=== PATIENT | female | born 1970 | race American Indian/Alaskan Native ===

== ENCOUNTER 2019-04-27 06:49 | Day surgery (SDC) | payer BC ==
--- NOTE | 2019-04-27 07:44 | Anesthesia Day of Surgery ---
Anesthesia Day of Surgery - Day of Surgery Patient Examined: Yes Patient H&P Reviewed: Yes Patient is NPO: Yes
--- NOTE | 2019-04-27 07:46 | Anesthesia Consultation ---
Anesthesia Consult and Med Hx Date of service: 04/27/19 - Airway Anesthetic Teeth Evaluation: Good ROM Head & Neck: Adequate Mental/Hyoid Distance: Adequate Mallampati Class: Class II Intubation Access Assessment: Probably Good - Pre-Operative Health Status ASA Pre-Surgery Classification: ASA2 Proposed Anesthetic Plan: MAC - Pulmonary Hx Smoking: No Hx Asthma: No - Gastrointestinal Hx Gastroesophageal Reflux Disease: Yes
[2019-04-27] MEDS ORDERED: WATER FOR IRRIG STERILE IR ONE ×2 (07:48→07:50)
[2019-04-27] MEDS ORDERED: WATER FOR IRRIG STERILE ONE (07:49)
[2019-04-27] MEDS ORDERED: DIPRIVAN 10 MG/ML IV ONE ×3 (07:51)
[2019-04-27] MEDS ORDERED: XYLOCAINE 1% 20 mL ONE (07:51)
[2019-04-27] MEDS ORDERED: VERSED ONE (07:51)
[2019-04-27] MEDS ORDERED: NACL 0.9% 1000 ML 1,000 ML IV SCH (08:00)
--- NOTE | 2019-04-27 09:18 | Procedure Note ---
Date of procedure: 04/27/19 Pre-op diagnosis: GERD and Abdominal Pain Post-op diagnosis: other (Mild to Moderate Distale Esophagitis/Gastritis/ R/O Celiac Disease/Small Cecal and Sigmoid Polyps/ Solitary, Cecal Diverticuli/ R/O Ileitis/ R/O Microscopic Colitis/ Mild to Moderate Internal Hemorrhoids) Procedure: EGD with Biopsy and Colonoscopy with Biopsy Anesthesia: [facility] Surgeon: JELANI SARMIENTO Estimated blood loss: minimal Pathology: list Specimen disposition: to lab Condition: stable Disposition: same day (Treat with PPI,prn Bentyl and OTC Probiotic. Avoid aspirin and NSAID for 5 days and follow up in 1 to 2 weeks ([phone]).)
[2019-04-27 09:52] VITALS: BP 116/71
--- NOTE | 2019-04-27 10:07 | Operative Report ---
INDICATIONS: This is a 48-year-old -Citizen Of The [place] female with a strong family history of cancer. The patient's mother had breast cancer at a relatively young age. Father had prostate cancer. Colonoscopy was done because the patient was also complaining of some abdominal pain and rule out for any associated colitis. DESCRIPTION OF PROCEDURE: The procedure was done after getting informed consent with MAC anesthesia. Initial rectal exam was unremarkable. Instrument was passed through the rectum onto the cecum, which was identified by the ileocecal valve and the appendiceal orifice. Visualization was fair to good. The terminal ileum was intubated showed normal mucosa. Biopsy was done to rule out for possible ileitis. There were multiple small polyps noted in the cecum, which may have been hyperplastic. These were removed. Several of these were removed via cold biopsy. There was a solitary cecal diverticula noted, which was incidental and random biopsies were done throughout the proximal transverse and left colon, there were a few polyps noted, possibly hyperplastic in the sigmoid that were also removed and the rectum showed mild to moderate internal hemorrhoids on the retroverted view. ASSESSMENT: Abdominal pain, rule out microscopic colitis, rule out ileitis, solitary cecal polyp, multiple small sigmoid and cecal polyps possibly hyperplastic that were removed. There was a solitary cecal diverticulum which is incidental and [id number] internal hemorrhoid. Again, there was minimal bleeding from the biopsy sites. No complications during the procedure. The patient will be treated with PPI because of the upper GI findings of esophagitis, gastritis, encouraged to take probiotics and will be treated with Bentyl for any abdominal pain and asked to follow up in the office in 1-2 weeks' time. Also, she will be encouraged to take fiber supplements. RN, Margy Dawn was in the room throughout the entirety of the patient encounter. [facility]# [id number] NIKKI/DUC
--- NOTE | 2019-04-27 12:45 | Operative Report ---
PROCEDURE: EGD with biopsy. INDICATIONS: This is a 48-year-old -[place] female with an underlying family history of cancer. The patient lately has been having GERD symptoms as well as abdominal pain. EGD was done to make sure there was not any significant upper GI pathology present. She also gives a prior history of H. pylori gastritis. DESCRIPTION OF PROCEDURE: The procedure was done after getting informed consent with MAC anesthesia. Instrument was passed through the hypopharynx into the esophagus, which showed some mild distal esophagitis. Stomach showed gastritis, but no ulcers were noted in the straight or the retroverted view. The pylorus is patent. The duodenum in the first and the second portion appeared normal. Biopsy was done from the second part to rule out for possible celiac disease. Additional biopsy was done from the gastric antrum, gastric body and angular incisura to rule out for H. pylori and biopsy was also done from the distal esophagus to assess for the severity of the esophagitis. ASSESSMENT: Gastroesophageal reflux disease symptoms, mild to moderate distal erosive esophagitis, gastritis, rule out celiac disease, previous history of Helicobacter pylori gastritis. PLAN: Plan is to treat the patient with PPI. The patient to avoid aspirin and aspirin-related products for the next few days and I can do a colonoscopy for further assessment of the abdominal pain and have the patient follow up in the office in 1-2 weeks' time. RNMargy was in the room throughout the entirety of the patient encounter. [facility]# [id number] NIKKI/DUC
== END 2019-04-27 06:50 | disposition home or self-care (01) ==
LOC: GIO 06:49
DX: K29.50 Unspecified chronic gastritis without bleeding (principal); K63.5 Polyp of colon; K21.0 Gastro-esophageal reflux disease with esophagitis; K57.30 Diverticulosis of large intestine without perforation or abscess without bleeding; K64.8 Other hemorrhoids; K63.89 Other specified diseases of intestine; K31.89 Other diseases of stomach and duodenum; Z80.3 Family history of malignant neoplasm of breast; Z80.42 Family history of malignant neoplasm of prostate; Z79.899 Other long term (current) drug therapy; Z90.710 Acquired absence of both cervix and uterus; Z98.890 Other specified postprocedural states
CPT/HCPCS: 43239; 45380; 88305; 88312; 88342; J2250; J2704; J7030